=== PATIENT | female | born 1995 | race Caucasian/White ===

== ENCOUNTER 2024-03-04 08:44 | Outpatient (CLI) | payer OTHER | END 2024-03-04 08:51 | disposition home or self-care (01) | LOC: SONOGRAMA 08:44 | PROVIDERS: ATTEND General Practice | DX: N93.9 Abnormal uterine and vaginal bleeding, unspecified (principal) ==

== ENCOUNTER 2024-08-13 12:36 | Emergency (ER) | payer OTHER ==
[~2024-08-13] VITALS: Ht 160 cm; Wt 72.6 kg
[2024-08-13 19:00] LABS: HEMOGLOBIN 12.5 g/dL (12.0-15.00); MEAN CELL VOLUME 88.4 fL (80.00-100.00); MEAN CORPUSCULAR HEMOGLOBIN 29.8 pg (27.00-32.0); MEAN CORPUSCULAR HGB CONC 33.8 g/dl (32.0-36.0); PLATELET COUNT 263 K/uL (150-450); RED BLOOD COUNT 4.19 M/uL (4.00-6.00); RED CELL DISTRIBUTION WIDTH 13.6 % (11.5-14.5)
[2024-08-13] MEDS ORDERED: GILTUSS COUGH-118 M1 PO (20:24)
[2024-08-13] MEDS ORDERED: ACETAMINOPHEN500 M1 PO (20:24)
== END 2024-08-13 21:01 | disposition home or self-care (01) ==
LOC: ER 12:38
PROVIDERS: Preventive Medicine Public Health & General Preventive Medicine
DX: B34.9 Viral infection, unspecified (principal); R53.81 Other malaise; Z20.822 Contact with and (suspected) exposure to COVID-19